=== PATIENT | female | born 1980 | race Two or more races ===

== ENCOUNTER 2018-05-10 17:35 | Emergency (ER) | payer OTHER ==
[~2018-05-10] VITALS: Ht 149.9 cm; Wt 51.3 kg
== END 2018-05-10 20:18 | disposition home or self-care (01) ==
LOC: ER 17:35
DX: G24.3 Spasmodic torticollis (principal)

== ENCOUNTER 2018-09-22 19:23 | Emergency (ER) | payer OTHER ==
[~2018-09-22] VITALS: Ht 152.4 cm; Wt 54.4 kg
== END 2018-09-22 22:23 | disposition home or self-care (01) ==
LOC: ER 19:23
DX: N39.0 Urinary tract infection, site not specified (principal)

== ENCOUNTER 2019-04-27 15:40 | Emergency (ER) | payer OTHER ==
[~2019-04-27] VITALS: Ht 152.4 cm; Wt 53.5 kg
== END 2019-04-27 18:20 | disposition home or self-care (01) ==
LOC: ER 15:40
DX: R00.0 Tachycardia, unspecified (principal); T40.7X5A Adverse effect of cannabis (derivatives), initial encounter

== ENCOUNTER 2019-11-19 17:47 | Emergency (ER) | payer OTHER ==
[~2019-11-19] VITALS: Ht 152.4 cm; Wt 54.4 kg
== END 2019-11-19 22:21 | disposition home or self-care (01) ==
LOC: ER 17:47
DX: J06.9 Acute upper respiratory infection, unspecified (principal)

== ENCOUNTER 2020-04-18 10:35 | Emergency (ER) | payer OTHER ==
[~2020-04-18] VITALS: Ht 152.4 cm; Wt 53.5 kg
== END 2020-04-18 14:54 | disposition home or self-care (01) ==
LOC: ER 10:35
DX: K63.89 Other specified diseases of intestine (principal); R10.31 Right lower quadrant pain

== ENCOUNTER 2020-04-28 17:31 | Emergency (ER) | payer OTHER ==
[~2020-04-28] VITALS: Ht 152.4 cm; Wt 53.5 kg
== END 2020-04-28 18:15 | disposition home or self-care (01) ==
LOC: ER 17:31
DX: J01.90 Acute sinusitis, unspecified (principal); Z20.828 Contact with and (suspected) exposure to other viral communicable diseases

== ENCOUNTER 2021-05-28 07:19 | Emergency (ER) | payer OTHER ==
[~2021-05-28] VITALS: Ht 152.4 cm; Wt 54.4 kg
== END 2021-05-28 10:21 | disposition home or self-care (01) ==
LOC: ER 07:19
DX: H60.91 Unspecified otitis externa, right ear (principal)

== ENCOUNTER 2021-09-30 07:30 | Emergency (ER) | payer OTHER ==
[~2021-09-30] VITALS: Ht 152.4 cm; Wt 58.1 kg
[2021-09-30] MEDS ORDERED: NORFLEX100MG PO (11:47)
== END 2021-09-30 11:52 | disposition home or self-care (01) ==
LOC: ER 07:30
DX: M25.511 Pain in right shoulder (principal)

== ENCOUNTER → 2022-04-09 | Emergency (ER) | payer OTHER ==
[~2022-04-09] MED LIST: NORFLEX100MG PO
== END | disposition home or self-care (01) ==
LOC: ER 03:35
DX: K80.40 Calculus of bile duct with cholecystitis, unspecified, without obstruction (principal)

== ENCOUNTER 2022-06-23 01:15 | Emergency (ER) | payer OTHER ==
[~2022-06-23] VITALS: Ht 152.4 cm; Wt 54.4 kg
== END 2022-06-23 18:25 | disposition home or self-care (01) ==
LOC: ER 01:15
DX: K80.20 Calculus of gallbladder without cholecystitis without obstruction (principal)

== ENCOUNTER 2022-08-04 06:54 | Day surgery (SDC) | payer OTHER ==
[~2022-08-04] VITALS: Ht 152.4 cm; Wt 54.4 kg
== END 2022-08-04 13:20 | disposition home or self-care (01) ==
LOC: CIR.AMB 06:54
PROVIDERS: ATTEND Specialist
DX: K80.10 Calculus of gallbladder with chronic cholecystitis without obstruction (principal); K59.00 Constipation, unspecified; Z86.16 Personal history of COVID-19

== ENCOUNTER 2022-10-27 07:23 | Emergency (ER) | payer OTHER ==
[~2022-10-27] VITALS: Ht 160 cm; Wt 53.5 kg
[2022-10-27] MEDS ORDERED: AVASTIN25 MG/1 ML PO (07:38)
[2022-10-27] MEDS ORDERED: PEPCID AC20 MG PO (17:57)
[2022-10-27] MEDS ORDERED: CIPRO500 MG PO (17:57)
== END 2022-10-27 18:20 | disposition home or self-care (01) ==
LOC: ER 07:23
DX: N39.0 Urinary tract infection, site not specified (principal)